=== PATIENT | female | born 1965 | race Two or more races ===

== ENCOUNTER 2024-10-11 11:03 | Emergency (ER) | payer MEDICAID, SELFPAY ==
[2024-10-11 11:03] VITALS: BMI 28.5
[2024-10-11 11:11] VITALS: BP 150/71; PULSE 77; RESP 19; TEMP 37; O2SAT 98
--- NOTE | 2024-10-11 11:29 | XR_ITS ---
Examination: Shoulder,right, 3 views Technique: Shoulder AP internal rotation, AP external rotation, Y view shoulder, 3 views Exam date and time :October 11, 2024 1153 hours INDICATIONS: Shoulder pain after vaccine injection FINDINGS: Moderate to advanced osteoarthritis glenohumeral joint No fracture or shoulder dislocation Moderate osteoarthritis acromioclavicular joint No cortical bone destruction No foreign body IMPRESSION: Moderate to advanced osteoarthritis glenohumeral joint
--- NOTE | 2024-10-11 12:15 | PD.EDUPEX ---
Upper Extremity Injury RME/HPI General Chief Complaint: Extremity Injury, Upper Stated Complaint: rt upper arm pain Time Seen by Provider: 10/11/24 11:12 Arrival date/time: 10/11/24 11:03 59-year-old female presents the emergency department complaints of a 2-week history of right upper arm pain after receiving shingles injection Limitations: no limitations Related Data Previous Rx's ?Medication ?Instructions ?Recorded azithromycin 250 mg tablet See Rx Instructions PO .COMPLEX #6 02/17/20 tabs guaifenesin 400 mg tablet 400 mg PO Q6H #20 tabs 02/17/20 albuterol sulfate 90 mcg/actuation 2 puff inhalation QID PRN 03/05/20 aerosol inhaler shortness of breath or wheezing #18 grams albuterol sulfate 90 mcg/actuation 2 puff inhalation Q6H PRN 08/06/20 aerosol inhaler shortness of breath or wheezing #8.5 grams ipratropium bromide 17 1 puff inhalation QID #12.9 grams 08/06/20 mcg/actuation HFA aerosol inhaler (Atrovent HFA) prednisone 50 mg tablet 50 mg PO QDAY #5 tabs 08/06/20 cyclobenzaprine 10 mg tablet 10 mg PO TID PRN muscle spasm 10 10/11/24 days #30 tab-caps ibuprofen 600 mg tablet 600 mg PO Q6H #30 tabs 10/11/24 Allergies Allergy/AdvReac Type Severity Reaction Status Date / Time No Known Allergies Allergy Verified 10/11/24 11:06 Review of Systems Review of Systems Systems Reviewed: All systems reviewed, normal except as documented Constitutional Constitutional: Reports system reviewed and no additional complaints, except as documented, Denies fever(s) and Denies headache(s) Eyes Eyes: Reports system reviewed and no additional complaints, except as documented and Denies blurry vision ENT Ears, Nose, Mouth, and Throat: Reports system reviewed and no additional complaints, except as documented, Denies headache(s), Denies nasal congestion and Denies nasal discharge Cardiovascular Cardiovascular: Reports system reviewed and no additional complaints, except as documented, Denies chest pain and Denies dyspnea Respiratory Respiratory: Reports system reviewed and no additional complaints, except as documented, Denies chest congestion, Denies cough and Denies dyspnea Gastrointestinal Gastrointestinal: Reports system reviewed and no additional complaints, except as documented and Denies abdominal pain Musculoskeletal Musculoskeletal: Reports system reviewed and no additional complaints, except as documented, Reports arthralgias (Right arm pain) and Denies deformity Integumentary/Breasts Skin/Breast: Reports system reviewed and no additional complaints, except as documented and Denies rash Neurologic Neurologic: Reports system reviewed and no additional complaints, except as documented, Reports as per HPI and Denies headache(s) Past Medical History Past Medical History CARDIAC: Negative Congestive Heart Failure RESPIRATORY: Positive Asthma; Negative Chronic Obstructive Pulmonary Disease (COPD) GENITOURINARY: Negative Renal Disease ENDOCRINE: Negative Diabetes Mellitus Type 1 or Diabetes Mellitus Type 2 Social History SMOKING STATUS: Never smoker SECOND HAND EXPOSURE: No SUBSTANCE USE: does not use ED Exam General Limitations: Present no limitations General appearance: Present alert and in no apparent distress Head Head exam: Present atraumatic Eye Eye exam: Present normal appearance, PERRL and EOMI ENT ENT exam: Present normal exam, normal oropharynx and mucous membranes moist Neck Neck exam: Present normal inspection, full ROM and trachea midline Chest Chest inspection: Present normal inspection and symmetric chest wall rise Respiratory Respiratory exam: Present normal lung sounds bilaterally Cardiovascular Cardiovascular exam: Present regular rate, normal rhythm and normal heart sounds Abdominal Exam Abdominal exam: Present soft and normal bowel sounds Extremities Exam Extremities exam: Present full ROM, tenderness (Right arm pain) and normal capillary refill; Absent joint swelling Back Exam Back exam: Present normal inspection and full ROM Neurological Exam Neurological exam: Present alert, oriented X3 and CN II-XII intact Psychiatric Psychiatric exam: Present normal affect and normal mood Skin Skin exam: Present warm, dry, intact and normal color Course Quality Measures none Orders Category Date Time Status XR shoulder RT min 2V Stat Exams 10/11/24 11:29 Completed Vital Signs Vital signs: Vital Signs Temperature 98.6 F 10/11/24 11:11 Pulse Rate 77 10/11/24 11:11 Respiratory Rate 19 10/11/24 11:11 Blood Pressure 150/71 H 10/11/24 11:11 Pulse Oximetry (%) 98 10/11/24 11:11 Oxygen Delivery Method Room Air 10/11/24 11:11 O2 saturation 98% room air within normal limits Extremity Injury MDM Narrative MDM Narrative:: 59-year-old female presents the emergency department complaints of a 2-week history of right upper arm pain after receiving shingles injection X-ray right upper extremity obtained no acute emergent findings noted Patient reports no headache or dizziness Patient ports no numbness no tingling no weakness Patient discharged home in no distress to follow-up with primary care doctor in the next 24 to 48 hours and for any worsening symptoms to return to the ER immediately Patient data External records reviewed:: [facility] previous records Clinical information provided by:: patient Social determinants that could affect healthcare access:: none Patient has the following chronic illnesses:: See history of How is presenting disease/condition affected by chronic disease/condition?: no chronic disease Evaluation data The following diagnostics were reviewed and interpreted by me:: radiology exam(s) Lab and/or radiology exams considered but not ordered:: radiology obtained Interpretation Summary: Reviewed by me Medications / Prescriptions Medications or Prescriptions considered but not ordered:: Given Medication administrations:: Given Consultations Consultation(s) initiated? (list below): No Diagnosis Upper Extremity Injury Differential Diagnosis: other (Shoulder sprain, shoulder sprain, reaction to medication) Most likely diagnosis given after review of the tests above:: Arm pain Admission Indicated Admission indicated?: not indicated Admission Request Was there a request for admission?: No Disposition Plan Disposition Plan: Discharge Discharge Attestation Discharge Attestation: The patient and all family members were given an opportunity to ask questions and understood the discharge instructions. Discharge instructions specifically effects, indications for sooner follow up or return to the emergency department, and the expected course of current diagnosis. Patient condition: Stable Discharge Plan Plan Patient Disposition: HOME (Self Care) Disposition Comment: Stable Prescriptions/Referrals Prescriptions/Med Rec: New cyclobenzaprine 10 mg tablet 10 mg PO TID PRN (Reason: muscle spasm) 10 Days Qty: 30 0RF ibuprofen 600 mg tablet 600 mg PO Q6H Qty: 30 0RF No Action guaifenesin 400 mg tablet 400 mg PO Q6H Qty: 20 0RF azithromycin 250 mg tablet See Rx Instructions .ROUTE .COMPLEX Qty: 6 0RF Rx Instructions: take 500 mg today (day 1), then 250 mg for 4 days (days 2-5) albuterol sulfate 90 mcg/actuation HFA aerosol inhaler 2 puff IH QID PRN (Reason: shortness of breath or wheezing) Qty: 18 0RF prednisone 50 mg tablet 50 mg PO QDAY Qty: 5 0RF albuterol sulfate 90 mcg/actuation HFA aerosol inhaler 2 puff IH Q6H PRN (Reason: shortness of breath or wheezing) Qty: 8.5 0RF Atrovent HFA 17 mcg/actuation HFA aerosol inhaler 1 puff IH QID Qty: 12.9 0RF Referrals: Cassie Parks PA-C [Primary Care Provider] - 10/12/24 Problem List Clinical Impression: Arthralgia of right shoulder region, Pain at injection site Patient/Caregiver Discharge Instructions Education Materials: ED Arthralgia Additional Instructions: Please follow up with your primary care doctor in the next 24-48hrs for any worsening symptoms return here immediately Print Language: [place] Island[place] Stand Alone Forms: [facility] Award Info., Patient Portal Info Letter PA/DAVE Supervising Physician NIURKA/DAVE Supervising Physician: Dr. belle
== END 2024-10-11 13:09 | disposition home or self-care (01) ==
PROVIDERS: Emergency Provider Emergency Medicine; PCP Physician Assistant
DX: T88.1XXA Other complications following immunization, not elsewhere classified, initial encounter (principal); M25.511 Pain in right shoulder; Y84.8 Other medical procedures as the cause of abnormal reaction of the patient, or of later complication, without mention of misadventure at the time of the procedure
CPT/HCPCS: 73030; 99283

== ENCOUNTER → 2025-01-10 | Outpatient (CLI) | payer MEDICAID, SELFPAY ==
--- NOTE | 2025-01-10 11:30 | XR_ITS ---
Examination: Screening digital mammography, bilateral Computer aided detection 3-D breast Tomosynthesis, bilateral Date and time of exam: January 10, 2025 1137 hours Compared to mammograms dating to June 11, 2022 Indication: Screening Technique: Nonmagnified MLO, CC views of the breasts to been obtained, reconstructed from 3-D Tomosynthesis images. R2 computer aided detection program utilized for evaluation of suspicious masses and/or abnormal calcifications. 3-D Tomosynthesis images obtained. Findings: Scattered areas of fibroglandular density. Benign calcifications. No interval suspicious masses Impression: BI-RADS category II: Benign Findings. Recommend 1 year follow-up mammogram.
== END | disposition home or self-care (01) ==
PROVIDERS: Referring Provider Physician Assistant; Visit Provider Physician Assistant
DX: Z12.31 Encounter for screening mammogram for malignant neoplasm of breast (principal); R92.323 Mammographic fibroglandular density, bilateral breasts; R92.1 Mammographic calcification found on diagnostic imaging of breast
CPT/HCPCS: 77063; 77067